=== PATIENT | male | born 1970 | race Caucasian/White ===

== ENCOUNTER 2017-01-08 09:56 | Emergency (ER) | payer OTHER ==
[2017-01-08 10:00] VITALS: RESP 20
[2017-01-08] MEDS ORDERED: DIPH,PERTUS(ACELL)TETVAC-LF 0.5 ML VIAL IM ONE (10:15)
[2017-01-08] MEDS ORDERED: ACETAMINOPHEN TAB 500 MG TAB PO STA (10:15)
--- NOTE | 2017-01-08 10:19 | ED ---
Head Injury HPI - General Chief complaint: Head Injury Stated complaint: [facility], Head laceration Time Seen by Provider: 01/08/17 10:08 Source: patient Mode of arrival: ambulatory Limitations: no limitations - History of Present Illness Initial comments: 46 years old male he was at work this morning around 9:30, he hit his head against the steal object has a laceration on his scalp, complaining about the neck pain as well. He denies any other injuries no loss of consciousness no nausea no vomiting no blood pressure. No chest pain or shortness of breath no abdominal pain no frequency urgency dysuria he is not quite sure when was his last tetanus updated he agrees with the tetanus booster - Related Data Previous Rx's Medication Instructions Recorded Amoxic-Pot Clav 875-125Mg 1 tab PO Q12HR #14 tablet 01/08/17 [Augmentin 875-125] Allergies/Adverse reactions: Allergies Allergy/AdvReac Type Severity Reaction Status Date / Time No Known Allergies Allergy Verified 01/08/17 10:00 Review of Systems ROS Statement: Those systems with pertinent positive or pertinent negative responses have been documented in the HPI. ROS Other: All systems not noted in ROS Statement are negative. Past Medical History Past Medical History: No Reported History History of Any Multi-Drug Resistant Organisms: None Reported Past Surgical History: Appendectomy, Orthopedic Surgery Past Psychological History: No Psychological Hx Reported Smoking Status: Never smoker Past Alcohol Use History: Occasional Past Drug Use History: None Reported General Exam - General Exam Comments Initial Comments: General: The patient is awake and alert, in no distress, and does not appear acutely ill. Skin: Skin is warm and dry and no rashes or lesions , scalp has a 10 cm laceration, on the right side of the scalp Eye: Pupils are equal, round and reactive to light, extra-ocular movements are intact; there is normal conjunctiva bilaterally. Ears, nose, mouth and throat: There are moist mucous membranes and no oral lesions. Neck: The neck is supple, there is mild tenderness over the C5 and C6 Cardiovascular: There is a regular rate and rhythm. No murmur, rub or gallop is appreciated. Respiratory: To auscultation bilateral, no wheezing no rhonchi no distress respiratory guardado noticed Gastrointestinal: Soft, non-distended, non-tender abdomen without masses or organomegaly noted. There is no rebound or guarding present. Bowel sounds are unremarkable. Back: There is no tenderness to palpation in the midline. There is no obvious deformity. Musculoskeletal: Normal ROM, no tenderness, There is no pedal edema. There is no calf tenderness or swelling. No cords were appreciated. Neurological: CN II-XII intact, Cranial nerves III through XII are intact. There are no obvious motor or sensory deficits. Coordination appears grossly intact. Speech is normal. Psychiatric: Cooperative, appropriate mood & affect, normal judgment. Limitations: no limitations Course Vital Signs 01/08/17 09:58 Temperature 97.8 F Pulse Rate 87 Respiratory 20 Rate Blood Pressure 141/88 O2 Sat by Pulse 99 Oximetry Procedures - Laceration Laceration #1 Consent Obtained: verbal consent Time Out Performed: Yes Indication: laceration Site: scalp Description: linear Depth: simple, single layer Anesthesia Technique: local infiltration Amount (mls): 8 Pre-repair: irrigated extensively, foreign body removed Type of Sutures: other Size of Sutures: other (Used ave, wound required 14 ave) Patient Tolerated Procedure: no complications Disposition Clinical Impression: Head injury, Scalp laceration, Neck injury Disposition: HOME SELF-CARE Condition: Good Instructions: Concussion (ED) Additional Instructions: Ave to be removed in 10 days Prescriptions: Amoxic-Pot Clav 875-125Mg [Augmentin 875-125] 1 tab PO Q12HR #14 tablet Referrals: Stephen Louie MD [Primary Care Provider] - 1-2 days
--- NOTE | 2017-01-08 11:20 | CT ---
EXAMINATION TYPE: CT brain roseline vang DATE OF EXAM: 01/08/2017 COMPARISON: NONE HISTORY: [facility], HEAD LACERATION CT DLP: 1552.30 mGycm Automated exposure control for dose reduction was used. TECHNIQUE: CT scan of the head and cervical spine are performed without contrast. FINDINGS: BRAIN: Central structures are midline. There is no evidence of hydrocephalus. No acute focal lesion, mass effect or midline shift is seen. I do not see evidence of intracranial blood. Visualized portions of the paranasal sinuses and mastoids are clear. No depressed skull fracture is s een. There is a right-sided scalp laceration. IMPRESSION: NO ACUTE INTRACRANIAL ABNORMALITY. CERVICAL SPINE: There are mild emphysematous changes within the visualized portions of the lungs. There is some shotty cervical adenopathy. Prevertebral soft tissues are otherwise unremarkable. Vertebral body height and alignment are maintained. Atlantoaxial relationships are normal. There is m ild disc space loss and hypertrophic spondylosis at C5-6 and C6-7. There is mild uncovertebral joint disease at these levels. The facets are unremarkable. No definite protrusion is seen. No fracture is identified. IMPRESSION: 1. NO ACUTE OSSEOUS LESION. 2. DEGENERATIVE CHANGE.
[2017-01-08 12:26] VITALS: BP 134/78; PULSE 68; TEMP 98
== END 2017-01-08 12:13 | disposition home or self-care (01) ==
LOC: EC 09:56
DX: S01.01XA Laceration without foreign body of scalp, initial encounter (principal); S19.9XXA Unspecified injury of neck, initial encounter; Z23 Encounter for immunization; W45.8XXA Other foreign body or object entering through skin, initial encounter; Y92.69 Other specified industrial and construction area as the place of occurrence of the external cause; Y99.0 Civilian activity done for income or pay
CPT/HCPCS: 12004; 70450; 72125; 90471; 90715; 99284

== ENCOUNTER → 2020-05-20 | Outpatient (CLI) | payer BC, OTHER ==
--- NOTE | 2020-05-20 16:18 | XR ---
EXAMINATION TYPE: XR lumbar spine with bend/flex DATE OF EXAM: 05/20/2020 Comparison: None Clinical History: 50-year-old male chronic low back pain, M54.5 TECHNIQUE: 9 views Findings: 5 lumbar type vertebral bodies. Facet arthropathy lower lumbar spine. No pars interarticularis defect . Vertebral body heights are preserved. Alignment is maintained. No dynamic subluxation with flexion or extension. There seems to be some plate and screw fixation hardware partially visualized within th e pelvis on the lateral view. IMPRESSION: Facet arthropathy lower lumbar spine. No vertebral compression collapse or malalignment. No dynamic s ubluxation on flexion or extension.
== END ==
LOC: RADXRMAIN 15:17
PROVIDERS: ATTEND Physical Medicine & Rehabilitation
DX: M47.816 Spondylosis without myelopathy or radiculopathy, lumbar region (principal)
CPT/HCPCS: 72114

== ENCOUNTER → 2020-05-23 | Outpatient (CLI) | payer BC, OTHER ==
[2020-05-23 09:00] LABS: ALT 31 U/L (4-49); AST 25 U/L (17-59); African American GFR (CKD) >90 (>60 ml/min/1.73 sqM); Alkaline Phosphatase 65 U/L (38-126); Anion Gap 8 mmol/L; Blood Urea Nitrogen 10 mg/dL (9-20); Calcium 9.9 mg/dL (8.4-10.2); Carbon Dioxide 32 mmol/L (22-30); Chloride 101 mmol/L (98-107); Creatine Kinase 116 U/L (55-170); GGT 28 U/L (15-73); LDH 367 U/L (313-618); Non-African American GFR(CKD) >90 (>60 ml/min/1.73 sqM); Potassium 4.5 mmol/L (3.5-5.1); Sodium 141 mmol/L (137-145); Uric Acid 4.9 mg/dL (3.5-8.5)
[2020-05-23 10:29] LABS: HCT 45.9 % (39.6-50.0); HGB 15.3 g/dL (13.0-17.0); MCH 29.5 pg (27.0-32.0); MCHC 33.3 g/dL (32.0-37.0); MCV 88.6 fL (80.0-97.0); Mean Platelet Volume 11.9 fL (9.5-12.2); Platelet Count 170 X 10*3/uL (140-440); RBC 5.18 X 10*6/uL (4.40-5.60); RDW 12.2 % (11.5-14.5); WBC 4.95 X 10*3/uL (4.50-10.00)
[2020-05-23 12:54] LABS: Erythrocyte Sedimentation Rate 3 mm/Hr (0-15)
[2020-05-24 00:42] LABS: Protein, Total 7.1 g/dL (6.2-8.2)
[2020-05-24 00:44] LABS: Rheumatoid Factor, Qnt 9 IU/mL (0-15)
[2020-05-24 01:09] LABS: Folate, Serum 12.6 ng/mL
[2020-05-26 14:38] LABS: Gamma Globulin 0.83 g/dL (0.70-1.50)
== END | disposition home or self-care (01) ==
LOC: LABWHC1 07:23
PROVIDERS: ATTEND Physical Medicine & Rehabilitation
DX: M13.80 Other specified arthritis, unspecified site (principal); R25.2 Cramp and spasm
CPT/HCPCS: 36415; 80051; 82310; 82550; 82565; 82607; 82746; 82947; 82950; 82977; 83036; 83615; 83735; 84075; 84165; 84207; 84443; 84450; 84460; 84480; 84481; 84520; 84550; 85027; 85652; 86038; 86334; 86431